=== PATIENT | female | born 1990 | race Hispanic/Latino ===

== ENCOUNTER 2019-10-19 13:12 | Emergency (ER) | payer OTHER ==
[2019-10-19 15:21] LABS: RAPID GROUP A STREP NEGATIVE (NEGATIVE)
== END 2019-10-19 16:19 | disposition home or self-care (01) ==
LOC: EDH 13:12
DX: B34.9 Viral infection, unspecified (principal); R09.81 Nasal congestion
CPT/HCPCS: 87804; 87880

== ENCOUNTER 2020-04-16 18:28 | Observation (INO) | payer OTHER, MEDICAID ==
[~2020-04-16] VITALS: Ht 157.5 cm; Wt 98.4 kg
[2020-04-16 19:18] LABS: APPEARANCE,URINE Clear (CLEAR); BILIRUBIN,URINE Negative (NEGATIVE); COLOR,URINE Yellow (YELLOW); GLUCOSE, URINE (UA) Negative (NEGATIVE); KETONES,URINE Negative (NEGATIVE); LEUKOCYTE ESTERASE ,URINE Negative (NEGATIVE); NITRATE,URINE Negative (NEGATIVE); OCCULT BLOOD,URINE Negative (NEGATIVE); PROTEIN,URINE Negative (NEGATIVE); UROBILINOGEN,URINE 0.2 mg/dL (0.2-1.0)
[2020-04-16 19:26] LABS: AMPHET/METH SCREEN,URINE NEGATIVE (NEGATIVE); BARBITURATE SCREEN, URINE NEGATIVE (NEGATIVE); BENZODIAZEPINES SCREEN,URINE NEGATIVE (NEGATIVE); CANNABINOID SCREEN,URINE NEGATIVE (NEGATIVE); COCAINE SCREEN,URINE NEGATIVE (NEGATIVE); OPIATE SCREEN,URINE NEGATIVE (NEGATIVE); PHENCYCLIDINE SCREEN,URINE NEGATIVE (NEGATIVE)
== END 2020-04-16 20:35 | disposition home or self-care (01) ==
LOC: EDH 18:28 → LDH 19:00 → UNDODEPER 19:48
PROVIDERS: ADMIT Obstetrics & Gynecology; ATTEND Obstetrics & Gynecology
DX: O36.8130 Decreased fetal movements, third trimester, not applicable or unspecified (principal); Z3A.21 21 weeks gestation of pregnancy
CPT/HCPCS: 59025; 76805; 80305; 81003; 99284; G0378 ×2

== ENCOUNTER 2020-06-17 19:02 | Observation (INO) | payer OTHER, MEDICAID ==
[~2020-06-17] VITALS: Ht 157.5 cm; Wt 101.6 kg
[2020-06-17 20:27] LABS: APPEARANCE,URINE Clear (CLEAR); BILIRUBIN,URINE Negative (NEGATIVE); COLOR,URINE Yellow (YELLOW); GLUCOSE, URINE (UA) Negative (NEGATIVE); KETONES,URINE Negative (NEGATIVE); LEUKOCYTE ESTERASE ,URINE Negative (NEGATIVE); NITRATE,URINE Negative (NEGATIVE); OCCULT BLOOD,URINE Negative (NEGATIVE); PROTEIN,URINE Negative (NEGATIVE); UROBILINOGEN,URINE 0.2 mg/dL (0.2-1.0)
[2020-06-17 20:35] LABS: AMPHET/METH SCREEN,URINE NEGATIVE (NEGATIVE); BARBITURATE SCREEN, URINE NEGATIVE (NEGATIVE); BENZODIAZEPINES SCREEN,URINE NEGATIVE (NEGATIVE); CANNABINOID SCREEN,URINE NEGATIVE (NEGATIVE); COCAINE SCREEN,URINE NEGATIVE (NEGATIVE); OPIATE SCREEN,URINE NEGATIVE (NEGATIVE); PHENCYCLIDINE SCREEN,URINE NEGATIVE (NEGATIVE)
[2020-06-17] MEDS ORDERED: TERBUTALINE SULFATE VIAL 1MG/ML SQ PRN (20:45)
[2020-06-17] MEDS ORDERED: LACTATED RINGERS 1000ML 1,000 ML IV SCH (20:45)
[2020-06-17] MEDS ORDERED: TERBUTALINE SULFATE VIAL 1MG/ML SQ ONE (21:00)
== END 2020-06-17 23:32 | disposition home or self-care (01) ==
LOC: EDH 19:02 → LDH 19:16
PROVIDERS: ADMIT Obstetrics & Gynecology; ATTEND Obstetrics & Gynecology
DX: O26.893 Other specified pregnancy related conditions, third trimester (principal); R10.2 Pelvic and perineal pain; O34.219 Maternal care for unspecified type scar from previous cesarean delivery; Z87.59 Personal history of other complications of pregnancy, childbirth and the puerperium; Z3A.30 30 weeks gestation of pregnancy
CPT/HCPCS: 59025; 80305; 81003; 96360; 96361; 96372; 99284; G0378 ×4; J3105

== ENCOUNTER 2020-07-26 10:18 | Observation (INO) | payer OTHER, MEDICAID ==
[~2020-07-26] VITALS: Ht 157.5 cm; Wt 105.2 kg
[2020-07-26 11:16] VITALS: BP 111/60
[2020-07-26 11:16] LABS: APPEARANCE,URINE Clear (CLEAR); BILIRUBIN,URINE Negative (NEGATIVE); COLOR,URINE Yellow (YELLOW); GLUCOSE, URINE (UA) Negative (NEGATIVE); KETONES,URINE Negative (NEGATIVE); LEUKOCYTE ESTERASE ,URINE Trace (NEGATIVE); NITRATE,URINE Negative (NEGATIVE); OCCULT BLOOD,URINE Negative (NEGATIVE); PH,URINE 5.5 (5.0-8.0); PROTEIN,URINE Negative (NEGATIVE); UROBILINOGEN,URINE 0.2 mg/dL (0.2-1.0)
[2020-07-26 11:48] LABS: BACTERIA,URINE Rare /HPF (None Seen); RBC,URINE 0-1 /HPF (0-1); SQUAMOUS EPITHELIAL CELL,UR Few /HPF (0-2); WBC,URINE 0-1 /HPF (0-1)
[2020-07-26 14:06] LABS: AMPHET/METH SCREEN,URINE NEGATIVE (NEGATIVE); BARBITURATE SCREEN, URINE NEGATIVE (NEGATIVE); BENZODIAZEPINES SCREEN,URINE NEGATIVE (NEGATIVE); CANNABINOID SCREEN,URINE NEGATIVE (NEGATIVE); COCAINE SCREEN,URINE NEGATIVE (NEGATIVE); OPIATE SCREEN,URINE NEGATIVE (NEGATIVE); PHENCYCLIDINE SCREEN,URINE NEGATIVE (NEGATIVE)
== END 2020-07-26 12:40 | disposition home or self-care (01) ==
LOC: LDH 10:18
PROVIDERS: ADMIT Obstetrics & Gynecology; ATTEND Obstetrics & Gynecology
DX: O99.891 Other specified diseases and conditions complicating pregnancy (principal); M79.89 Other specified soft tissue disorders; O09.293 Supervision of pregnancy with other poor reproductive or obstetric history, third trimester; O26.893 Other specified pregnancy related conditions, third trimester; R20.0 Anesthesia of skin; Z3A.35 35 weeks gestation of pregnancy
CPT/HCPCS: 59025; 80305; 81001; 93005; G0378 ×2

== ENCOUNTER 2020-08-05 16:00 | Inpatient (IN) | payer OTHER, MEDICAID ==
[~2020-08-05] VITALS: Ht 162.6 cm; Wt 86.2 kg
[2020-08-08] MEDS ORDERED: CEFAZOLIN SODIUM 1 GM VIAL IVP PRN (06:00)
[2020-08-08] MEDS ORDERED: LACTATED RINGERS 1000ML 1,000 ML IV SCH (06:00)
[2020-08-08] MEDS ORDERED: PREN1TAB80 PO (06:20)
[2020-08-08] MEDS ORDERED: ASPI-1197 PO (06:21)
[2020-08-08 06:45] LABS: HEMATOCRIT 33.8 % (36-48); MEAN CORPUSCULAR HEMOGLOBIN 24.9 pg (27.0-33.0); MEAN CORPUSCULAR HGB CONC 31.1 g/dL (32.0-36.0); MEAN CORPUSCULAR VOLUME 80.1 fL (79-99); PLATELET COUNT (AUTO) 224 K/uL (130-400); RED BLOOD CELL COUNT(AUTO) 4.22 MIL/uL (4.00-5.50); RED CELL DISTRIBUTION WIDTH 14.4 % (11.0-15.5); WHITE BLOOD COUNT (AUTO) 8.9 K/uL (4.8-10.8)
[2020-08-08 06:56] VITALS: BP 111/63
[2020-08-08] MEDS ORDERED: MORPHINE PF 100MG/10ML AMP IV ONE (07:08)
[2020-08-08] MEDS ORDERED: EPINEPHRINE PF 1MG AMP ONE (07:08)
[2020-08-08] MEDS ORDERED: CALDOLOR 800MG+NS 250ML 250 ML IV ONE (07:12)
[2020-08-08] MEDS ORDERED: OXYTOCIN-LR 20 UNITS/1000 ML 2,000 ML IV ONE (07:12)
[2020-08-08] MEDS ORDERED: ONDANSETRON 4MG INJ ONE (07:18)
[2020-08-08] MEDS ORDERED: OXYTOCIN 10 UNIT/1ML 10ML VIAL ONE (07:19)
[2020-08-08] MEDS ORDERED: OXYTOCIN-LR 20 UNITS/1000 ML 1,000 ML IV SCH (07:45)
[2020-08-08] MEDS ORDERED: GLYCOPYRROLATE 1 MG/5 ML SYRINGE ONE (08:00)
[2020-08-08] MEDS ORDERED: MIDAZOLAM HCL 1 MG/ML 2ML VIAL ONE (08:17)
[2020-08-08] MEDS ORDERED: 0.9%NACL 10ML VIAL IVP PRN (08:45)
[2020-08-08] MEDS ORDERED: OXYTOCIN-LR 20 UNITS/1000 ML 1,000 ML IV PRN (08:45)
[2020-08-08] MEDS ORDERED: DEXTROSE 5 %-0.45 % NACL 1,000 ML IV PRN (08:45)
[2020-08-08] MEDS ORDERED: MEPERIDINE-PF 75 MG/ML SYG IM PRN (08:45)
[2020-08-08] MEDS ORDERED: PROMETHAZINE HCL 25 MG/ML 1ML AMPULE IM PRN (08:45)
[2020-08-08] MEDS ORDERED: CALDOLOR 800MG+NS 250ML 250 ML IV SCH (09:30)
[2020-08-08] MEDS ORDERED: EPHEDRINE SULFATE 50 MG/ML AMPULE ONE (09:31)
[2020-08-08] MEDS: CALDOLOR 800MG+NS 250ML 250 ML IV SCH (16:17)
[2020-08-08 16:20] VITALS: BP 94/54
[2020-08-08 19:25] VITALS: BP 117/43
[2020-08-08 23:05] VITALS: BP 105/65
[2020-08-09] MEDS: CALDOLOR 800MG+NS 250ML 250 ML IV SCH (00:07)
[2020-08-09 03:24] VITALS: BP 104/48
[2020-08-09] MEDS ORDERED: BISACODYL 10 MG SUPP.RECT RC PRN (06:30)
[2020-08-09] MEDS ORDERED: ACETAMINOPHEN 500 MG TABLET PO PRN (06:30)
[2020-08-09] MEDS ORDERED: HYDROCODONE/ACETAMINOPHEN 5/325 MG TAB PO PRN (06:30)
[2020-08-09 07:16] LABS: HEPATITIS Bs ANTIGEN SCREEN P Negative (Negative)
[2020-08-09 07:20] VITALS: BP 113/70
[2020-08-09] MEDS: SIMETHICONE 80 MG TAB.CHEW PO PRN ×4 (07:20→21:30)
[2020-08-09] MEDS: ACETAMINOPHEN WITH CODEINE 1 TAB TAB PO PRN ×3 (07:22→23:39)
[2020-08-09 07:23] LABS: HEMATOCRIT 28.2 % (36-48); MEAN CORPUSCULAR HEMOGLOBIN 26.1 pg (27.0-33.0); RED BLOOD CELL COUNT(AUTO) 3.57 MIL/uL (4.00-5.50); RED CELL DISTRIBUTION WIDTH 14.5 % (11.0-15.5); WHITE BLOOD COUNT (AUTO) 11.5 K/uL (4.8-10.8)
[2020-08-09] MEDS: DOCUSATE SODIUM 100 MG CAP PO SCH ×2 (08:31→21:30)
[2020-08-09] MEDS: IBUPROFEN 800 MG TAB PO SCH ×2 (08:32→16:19)
[2020-08-09 11:43] VITALS: BP 110/76
[2020-08-09 16:24] VITALS: BP 121/75
[2020-08-09 19:34] VITALS: BP 119/60
[2020-08-09 23:34] VITALS: BP 128/67
[2020-08-10] MEDS: IBUPROFEN 800 MG TAB PO SCH ×2 (00:43→09:26)
[2020-08-10 03:49] VITALS: BP 109/60
[2020-08-10 07:26] VITALS: BP 121/83
[2020-08-10] MEDS ORDERED: ACET1TAB25 PO (08:25)
[2020-08-10] MEDS ORDERED: IBUP-2077 PO (08:26)
[2020-08-10] MEDS ORDERED: DOCU-116 PO (08:27)
[2020-08-10] MEDS: SIMETHICONE 80 MG TAB.CHEW PO PRN ×2 (09:26→09:29)
[2020-08-10] MEDS: DOCUSATE SODIUM 100 MG CAP PO SCH (09:26)
[2020-08-10] MEDS ORDERED: HYDROCODONE/ACETAMINOPHEN 5/325 MG TAB PO PRN (09:45)
[2020-08-10] MEDS ORDERED: LANOLIN 30GM OINTMENT TP PRN (09:45)
[2020-08-10] MEDS ORDERED: SIMETHICONE 80 MG TAB.CHEW PO PRN (09:45)
[2020-08-10] MEDS ORDERED: ACETAMINOPHEN WITH CODEINE 1 TAB TAB PO PRN (09:45)
[2020-08-10] MEDS ORDERED: BISACODYL 10 MG SUPP.RECT RC PRN (09:45)
[2020-08-10] MEDS ORDERED: ACETAMINOPHEN 500 MG TABLET PO PRN (09:45)
[2020-08-10] MEDS ORDERED: IBUPROFEN 600 MG TABLET PO PRN (09:45)
[2020-08-10 11:09] VITALS: BP 127/67
[2020-08-10] MEDS ORDERED: DOCUSATE SODIUM 100 MG CAP PO SCH (21:00)
== END 2020-08-10 11:15 | disposition home or self-care (01) | DRG 788 ==
LOC: EDSTATUS 16:00 → LDH 08-08 05:55 → WSH 08-08 16:15
PROVIDERS: ADMIT Obstetrics & Gynecology; ATTEND Obstetrics & Gynecology
PROC: 10D00Z1 Extraction of Products of Conception, Low, Open Approach (ICD-10-PCS; principal; 2020-08-08 07:30)
DX: O34.211 Maternal care for low transverse scar from previous cesarean delivery (principal); Z20.822 Contact with and (suspected) exposure to COVID-19; Z3A.37 37 weeks gestation of pregnancy; Z37.0 Single live birth
CPT/HCPCS: 36415; 59510; 85027; 86592; 86701; 86850; 86900; 86901; 87340; 87390; A4344; G0378; J0171; J0690; J1741; J2250; J2274; J2405; J2590; J3490; J7120; U0003